=== PATIENT | male | born 1990 | race Caucasian/White ===

== ENCOUNTER 2020-09-02 22:02 | Emergency (ER) | payer MEDICAID ==
[~2020-09-02] VITALS: Ht 172.7 cm; Wt 74.8 kg
[2020-09-02] MEDS ORDERED: OXYC-128 PO (22:42)
--- NOTE | 2020-09-02 22:51 | NUR ---
Patient discharged to home in stable condition. Written and verbal after care instructions given. Patient verbalizes understanding of instructions. Stressed follow up or return to ER for worsening s/s.
[2020-09-02 22:52] VITALS: BP 121/74
== END 2020-09-02 22:53 | disposition home or self-care (01) ==
LOC: ER 22:04
DX: M94.0 Chondrocostal junction syndrome [Tietze] (principal); F17.210 Nicotine dependence, cigarettes, uncomplicated
CPT/HCPCS: 93005; A4663